=== PATIENT | female | born 1990 | race American Indian/Alaskan Native ===

== ENCOUNTER 2018-08-10 13:49 | Outpatient (CLI) | payer MEDICAID ==
[2018-08-10] MEDS ORDERED: LACTATED RINGERS 500 ML IV ONE (15:57)
[2018-08-10 17:08] LABS: Hematocrit 33.1 % (30.3-42.9); Hemoglobin 10.8 gm/dl (10.1-14.3); Mean Corpuscular HGB Conc 32 % (30-34); Mean Corpuscular Hemoglobin 27 pg (28-32); Mean Corpuscular Volume 84 fl (79-97); Platelet Count 296 K/mm3 (140-440); Red Blood Count 3.94 M/mm3 (3.65-5.03); Red Cell Distribution Width 12.9 % (13.2-15.2)
[2018-08-10 17:11] LABS: Bacteria,Urine 1+ /HPF (Negative); Bilirubin,Urine NEG (Negative); Blood,Urine NEG (Negative); Color,Urine Yellow (Yellow); Protein,Urine <15 mg/dL mg/dL (Negative); Urobilinogen,Urine < 2.0 mg/dL (<2.0)
[2018-08-10 17:24] LABS: Alanine Aminotransferase 34 units/L (7-56); Uric Acid 4.4 mg/dL (3.5-7.6)
[2018-08-10 17:34] VITALS: BP 154/88
== END 2018-08-10 17:54 | disposition home or self-care (01) ==
LOC: TRG 13:49
PROVIDERS: ATTEND Obstetrics & Gynecology
DX: O47.03 False labor before 37 completed weeks of gestation, third trimester (principal); Z3A.33 33 weeks gestation of pregnancy
CPT/HCPCS: 36415; 59025; 81001; 82565; 83615; 84450; 84460; 84550; 85027; 96360; 96361

== ENCOUNTER 2018-08-11 02:09 | Inpatient (IN) | payer MEDICAID ==
[2018-08-11] MEDS ORDERED: LACTATED RINGERS 1,000 ML IV ONE (02:23)
[2018-08-11] MEDS ORDERED: NITRATEST PAPER MC ONE (02:23)
[2018-08-11] MEDS ORDERED: BRETHINE IVP PRN (03:06)
[2018-08-11] MEDS ORDERED: MINERAL OIL PO PRN (03:06)
[2018-08-11] MEDS ORDERED: XYLOCAINE 2% INFILTRATI ONE (03:06)
[2018-08-11] MEDS ORDERED: BRETHINE SUB-Q PRN (03:06)
[2018-08-11] MEDS ORDERED: POLYCILLIN/NS 2 GM/100 ML 2 GM/100 ML BAG IV ONE (03:06)
[2018-08-11] MEDS ORDERED: CELESTONE SOLUSPAN IM SCH (04:00)
[2018-08-11] MEDS ORDERED: LACTATED RINGERS 1,000 ML IV SCH (04:00)
[2018-08-11] MEDS ORDERED: PITOCin/NS 20 UNIT/1000ML DRIP 20 UNITS/1,000 ML BAG IV SCH ×2 (04:00→12:00)
[2018-08-11 04:24] LABS: Hematocrit 33.1 % (30.3-42.9); Hemoglobin 10.8 gm/dl (10.1-14.3); Mean Corpuscular HGB Conc 33 % (30-34); Mean Corpuscular Hemoglobin 28 pg (28-32); Mean Corpuscular Volume 85 fl (79-97); Platelet Count 309 K/mm3 (140-440); Red Blood Count 3.91 M/mm3 (3.65-5.03); Red Cell Distribution Width 12.9 % (13.2-15.2)
--- NOTE | 2018-08-11 05:33 | Ultrasound Report ---
FINAL REPORT EXAM: US OB LIMITED HISTORY: leaking fluid COMPARISONS: None. FINDINGS: Limited 3rd trimester transabdominal M-mode, grayscale and color Doppler ultrasound Single living intrauterine in cephalic presentation with recorded cardiac activity of 158 b eats per minute and amniotic fluid index of approximately 6.5 cm. Maximum vertical pocket depth is ap proximately 4.8 cm. The cervix is not visualized on this exam. IMPRESSION: Single living intrauterine in cephalic presentation with amniotic fluid index of approximat camacho 6.5 cm and maximal vertical pocket depth of 4.8 cm, which are within normal limits. Consider repe at imaging for worsening/persistent symptoms.
[2018-08-11] MEDS: STADOL IV PRN ×2 (06:23→09:03)
[2018-08-11] MEDS ORDERED: AMPICILLIN/NS 1 GM/50 ML 1 GM/50 ML BAG IV SCH (07:07)
--- NOTE | 2018-08-11 08:43 | History and Physical Report ---
History of Present Illness Date of examination: 08/11/18 Date of admission: 08/11/18 03:17 Chief complaint: leakage of fluid History of present illness: 28y/o @ 34+0 weeks presents with gross rupture of membranes. The patient also complains of uterine cramping. She is a transfer of care @ 21 weeks ega. The patient is a carrier for alpha thalassemia. GBS status is unknown. She denies any precipitating event for PPROM. Past History Past Medical History: other (breast cyst) Past Surgical History: no surgical history Social history: - Obstetrical History Expected Date of Delivery: 09/22/18 Actual Gestation: 34 Week(s) 0 Day(s) : 1 Para: 0 Number of Pregnancies: 0 Spontaneous Abortions: 0 Induced : 0 Number of Living Children: 0 Medications and Allergies Allergies Allergy/AdvReac Type Severity Reaction Status Date / Time aspirin Allergy Severe Swelling Verified 08/02/18 12:35 Sulfa (Sulfonamide Allergy Severe Swelling Verified 08/02/18 12:35 Antibiotics) Home Medications Medication Instructions Recorded Confirmed Last Taken Type Pnv 29-1 Tablet 1 tab PO DAILY 08/11/18 08/11/18 08/10/18 History Active Meds: Active Medications Betamethasone Acet/Betameth SodPhos (Celestone Soluspan) 12 mg IM Q24H SIMRAN Stop: 08/12/18 04:01 Last Admin: 08/11/18 04:20 Dose: 12 mg Documented by: Butorphanol Tartrate (Stadol) 2 mg IV Q2H PRN PRN Reason: Pain , Severe (7-10) Last Admin: 08/11/18 06:23 Dose: 2 mg Documented by: Ephedrine Sulfate (Ephedrine Sulfate) 10 mg IV Q2M PRN PRN Reason: Hypotension Ampicillin Sodium (Ampicillin/Ns 1 Gm/50 Ml) 1 gm in 50 mls @ 100 mls/hr IV Q4HR SIMRAN; Protocol Lactated Ringer's (Lactated Ringers) 1,000 mls @ 125 mls/hr IV DIRECT SIMRAN Oxytocin/Sodium Chloride (Pitocin/Ns 20 Unit/1000ml Drip) 20 units in 1,000 mls @ 125 mls/hr IV DIRECT SIMRAN Mineral Oil (Mineral Oil) 30 ml PO QHS PRN PRN Reason: Constipation Terbutaline Sulfate (Brethine) 0.25 mg IVP ONCE PRN PRN Reason: Hyperstimulation/Hypertonicity Review of Systems All systems: negative Genitourinary: leakage of fluid - Vital Signs Vital signs: Vital Signs Pulse BP 71 169/77 08/11/18 02:19 08/11/18 02:19 Temp Pulse Resp BP Pulse Ox 98.8 F 70 18 147/76 08/11/18 06:36 08/11/18 08:32 08/11/18 02:24 08/11/18 08:32 - Physical Exam Breasts: Positive: deferred Cardiovascular: Regular rate Lungs: Positive: Clear to auscultation Results Result Diagrams: 08/11/18 03:00 Abnormal lab results 08/11/18 Range/Units 03:00 WBC 12.9 H (4.5-11.0) K/mm3 RDW 12.9 L (13.2-15.2) % All other labs normal. Assessment and Plan - Patient Problems (1) premature rupture of membranes Current Visit: Yes Status: Acute Plan to address problem: admit for IV antibiotics and steroids expectant management
[2018-08-11] MEDS ORDERED: COLACE PO PRN (09:30)
[2018-08-11] MEDS ORDERED: TYLENOL PO PRN ×2 (09:30→11:51)
[2018-08-11] MEDS ORDERED: MAGNESIUM SULFATE 4GM/100ML 4 GM/100 ML BAG IV ONE (10:00)
[2018-08-11] MEDS ORDERED: PRENATAL VITAMIN PO SCH (10:00)
[2018-08-11] MEDS ORDERED: MAGNESIUM SULFATE 40GM/1000ML 40 GM/1,000 ML BAG IV SCH (10:30)
[2018-08-11] MEDS ORDERED: PITOCin/NS 20 UNIT/1000ML DRIP 20,000 MILLIUNITS/1,000 ML BAG IV ONE (10:51)
[2018-08-11] MEDS ORDERED: SUBLIMAZE IV ONE (11:30)
[2018-08-11] MEDS ORDERED: TUCKS PAD TP PRN (11:51)
[2018-08-11] MEDS ORDERED: ZOFRAN IV PRN (11:51)
[2018-08-11] MEDS ORDERED: PERCOCET 5/325 PO PRN (11:51)
[2018-08-11] MEDS ORDERED: PHENERGAN PO PRN (11:51)
[2018-08-11] MEDS ORDERED: TORADOL IV PRN (11:51)
[2018-08-11] MEDS ORDERED: LANSINOH TP PRN (11:51)
[2018-08-11] MEDS ORDERED: BENADRYL PO PRN (11:51)
[2018-08-11] MEDS ORDERED: PHENERGAN PR PRN (11:51)
[2018-08-11] MEDS ORDERED: NORCO 5/325 PO PRN (11:51)
--- NOTE | 2018-08-11 11:59 | Procedure Note ---
OB Delivery Note - Delivery Date of Delivery: 08/11/18 Surgeon: MELVI COREY Estimated blood loss: 300cc - Vaginal Delivery presentation: vertex Delivery position: OA Intrapartum events: labor-<37 weeks Delivery induction: none Delivery monitor: none Route of delivery: Delivery placenta: spontaneous Delivery cord: 3 umbilical vessels Episiotomy: none Delivery laceration: none Anesthesia: none Delivery comments: patient was noted to be complete and commenced to pushing at 1128. She pushed and delviered a viable male at 1140. The shoulders delivered easily. The cord was a delay in clamping for 1 min. The cord was then clamped and cut and baby was attended by awaiting Peds staff. The male infant had apgars 8 and 9 with a weight of 3 pounds and 12oz. EBL 300 cc. No lacs noted after survey of perineum and vaginal area. patient tolerated procedure well. - Infant A at 1 minute: 8 at 5 minutes: 9 Infant Gender: Male (3 pounds 12 oz)
[2018-08-11] MEDS ORDERED: DULCOLAX PR PRN (12:00)
[2018-08-11] MEDS ORDERED: SODIUM CHLORIDE FLUSH SYRINGE 10 ML IV NR (12:00)
--- NOTE | 2018-08-11 12:09 | Ultrasound Report ---
OB ULTRASOUND History well being. Technique: Transabdominal ultrasound with Doppler interrogation. Gestation: Single Position: Cephalic Amniotic Fluid: Decreased SEDA = 5.6 cm Heart Rate: 143 BPM BPD: 7.3 cm = 29 w 2 d HC: 28.2 cm = 30 w 6 d AC: 26.8 cm = 30 w 6 d FL: 6.1 cm = 31 w 6 d HC/AC Ratio: 1.05 Cephalic Index: 87.8 Estimated Weight: 1689 grams LMP: 12/18/17 Clinical age = 33 w 5 d EDC: 09/24/18 US Gest. Age = 30 w 5 d EDC: 10/15/18 IMPRESSION: Viable, single intrauterine as described.
[2018-08-11] MEDS: MOTRIN PO SCH ×2 (18:15→23:04)
[2018-08-11] MEDS ORDERED: MILK OF MAGNESIA PO PRN (22:00)
[2018-08-11 23:50] LABS: Hematocrit 30.5 % (30.3-42.9); Hemoglobin 9.7 gm/dl (10.1-14.3)
[2018-08-12] MEDS: MOTRIN PO SCH ×2 (05:26→14:42)
--- NOTE | 2018-08-12 13:22 | Progress Note ---
Assessment and Plan - Patient Problems (1) premature rupture of membranes Current Visit: Yes Status: Acute Plan to address problem: patient doing well discharge home tomorrow Subjective - Subjective Date of service: 08/12/18 Interval history: Patient is without complaints. Infant is in NICU doing well. Pain well controlled Patient reports: appetite normal, voiding normally, pain well controlled : doing well, in NICU Objective - Vital Signs Latest vital signs: Vital Signs Temp Pulse Resp BP 08/12/18 08:10 97.7 F 71 18 130/81 08/12/18 04:15 98.6 F 66 18 107/78 08/12/18 00:15 98.7 F 71 18 115/61 08/11/18 20:30 98.7 F 77 18 140/77 08/11/18 13:25 97.8 F 77 147/85 Intake and Output 08/11/18 08/12/18 08/12/18 22:59 06:59 14:59 Intake Total 300 480 Output Total 800 Balance -800 300 480 Intake: Oral 480 Intake, Free Water 300 Output: Urine 800 Void 800 Other: Total, Intake Amount 480 Total, Output Amount 500 # Voids Void 1 - Exam Abdomen: Present: normal appearance, soft - Labs Labs: Abnormal lab results 08/11/18 Range/Units 23:22 Hgb 9.7 L (10.1-14.3) gm/dl
--- NOTE | 2018-08-12 13:24 | Discharge Summary ---
Providers - Providers Date of Admission: 08/11/18 03:17 Date of discharge: 08/13/18 Attending physician: TESSA REILLY 08/11/18 08:41 Consult to Physician [CONS] Urgent Comment: Consulting Provider: DARIO PARTIDA Physician Instructions: Reason For Exam: pprom Primary care physician: TESSA REILLY Hospitalization Reason for admission: labor, rupture of membranes Delivery: Discharge diagnosis: delivery Hospital course: Patient admitted in labor with PPROM at 34 weeks. Had a . uncomplicated Condition at discharge: Good Disposition: DC-01 TO HOME OR SELFCARE - Discharge Diagnoses (1) premature rupture of membranes Status: Acute Plan - Discharge Medications Prescriptions: Ferrous Sulfate 325 mg PO BID #30 tablet. Ibuprofen [Motrin] 600 mg PO Q8H PRN #30 tablet PRN Reason: Pain oxyCODONE /ACETAMINOPHEN [Percocet 5/325] 1 tab PO Q6HR PRN #30 tablet PRN Reason: Pain - Provider Discharge Summary Activity: no sex for 6 weeks, no heavy lifting 4 weeks, no strenuous exercise Diet: routine Instructions: routine Additional instructions: [] Smoking cessation referral if applicable(refer to patient education folder for contact #) [] Refer to [facility] Booklet Call your doctor immediately for: * Fever > 100.5 * Heavy vaginal bleeding ( >1 pad per hour) * Severe persistent headache * Shortness of breath * Reddened, hot, painful area to leg or breast * schedule visit in 4 weeks - Follow up plan
[2018-08-13] MEDS: MOTRIN PO SCH ×3 (00:05→13:20)
[2018-08-13 05:46] VITALS: BP 104/62
[2018-08-13] MEDS ORDERED: TRIMOX PO SCH (08:50)
== END 2018-08-13 14:20 | disposition home or self-care (01) | DRG 775 ==
LOC: TRG 02:09 → LD 03:17 → TRG 03:17 → OB 13:32
PROVIDERS: ADMIT Obstetrics & Gynecology; ATTEND Obstetrics & Gynecology
PROC: 10E0XZZ Delivery of Products of Conception, External Approach (ICD-10-PCS; principal; 2018-08-11)
DX: O60.14X0 Preterm labor third trimester with preterm delivery third trimester, not applicable or unspecified (principal); O42.013 Preterm premature rupture of membranes, onset of labor within 24 hours of rupture, third trimester; Z3A.34 34 weeks gestation of pregnancy; Z37.0 Single live birth
CPT/HCPCS: 36415; 76815; 76816; 85014; 85018; 85027; 86592; 86850; 86900; 86901; 88307; G0378; A6250; J0290; J0595; J0702; J2590; J3010; J3475; J7120